=== PATIENT | female | born 1980 | race Caucasian/White ===

== ENCOUNTER 2017-12-25 07:42 | Day surgery (SDC) | payer OTHER, SELFPAY ==
[2017-12-25] VITALS (7 sets, daily range): BP systolic 97–103; BP diastolic 59–72; PULSE 75–88; RESP 16; TEMP 36.3–36.6; O2SAT 98–100; BMI 24.7
--- NOTE | 2017-12-25 | IMM_PTH ---
PATIENT: JOSE ESCALANTE [place] [facility] [place][id number] AGE/SX: 37/F ROOM: RE12/25/[address]: Dr. Darya James MD : 1980 BED: DIS: 12/25/2017 SPEC #: [id number] RECD: 12/26/17 13:57 STATUS: TRACY RECindy #: [id number] MANDY: 12/25/17 00:[address]: Darya James DEPT: IMMUNOHISTOCHEMISTRY RECD BY: Meredith Mireles ENTERED: 12/26/17 13:58 SP TYPE: IMMUNO OTHR DR: Sebastian Julian Tissues: A - Uterine cervix, NOS Procedures: p16 (initial) KI-67 (add) PHYSICIAN & INSTITUTION [place] [id number] SPECIMEN INFORMATION: Tissue Source: A - Ectocervix Clinical Info: SHERRIE III Specimen Number: [id number] CPT code: 76107, 77591 METHODOLOGY: Deparaffinized sections of prefer/formalin-fixed tissue or PAP/DQ stained slides are incubated with monoclonal/polyclonal antibodies/oligonucleotide probes. Localization is made via biotin free immunoperoxidase method. Appropriate controls are performed and reacted as expected. Results on target cell population are indicated in the following table: RESULTS: ANTIBODY / CLONE RESULT Block A2 P16 (E6H4) positive, block-like Ki-67 (30-9) positive, moderate to high These tests were developed and their performance characteristics determined by [facility]. They may not have been cleared or approved by the U.[place]. Food and Drug Administration. The FDA has determined that such clearance or approval is not necessary. INTERPRETATION: A. Ectocervix: Severe squamous dysplasia, SHERRIE III (HGSIL). AM:loy 12/29/17
[2017-12-25 08:13] LABS: Internal QC Validated? YES +Cl - CLEAR BKGD; Pregnancy, Urine Negative Negative
[2017-12-25 08:40] LABS: Hematocrit 37.4 % (37-47); Hemoglobin 12.7 g/dl (12.0-15.0); Mean Corpuscular Hgb 30.6 pg (27.0-32.0); Mean Corpuscular Volume 90.1 fL (81-99); Mean Platelet Vol. 10.4 fl (6.2-12.0); Platelet Count 206 K/mm3 (150-450); RBC Distribution Width CV 13.5 % (11.6-14.6); RBC Distribution Width SD 44.4 fl (35.1-43.9); Red Blood Count 4.15 M/mm3 (4.2-5.4); Scan Indicated on CBC? Y/N NO; White Blood Count 4.4 K/mm3 (4.4-11.0)
[2017-12-25] MEDS: FERRIC SUBSULFATE 8 GM SOLN (09:17)
--- NOTE | 2017-12-25 09:35 | CER_PTH ---
PATIENT: JOSE ESCALANTE LOC: [place] U#:[id number] AGE/SX: 37/F ROOM: RE12/25/[address]: Dr. Darya James MD : 1980 BED: DIS: 12/25/2017 SPEC #: [id number] RECD: 12/25/17 11:09 STATUS: TRACY RIA #: [id number] MANDY: 12/25/17 09:[address]: Darya James DEPT: SURGICAL PATHOLOGY RECD BY: Ramu Reyes ENTERED: 12/25/17 12:10 SP TYPE: CERV OTHR DR: Sebastian Julian Tissues: A - Uterine cervix, NOS B - Endocervical Procedures: Surgery Specimen Level IV HEADER OPERATION: LEEP cone PRE-OP DIAGNOSIS: SHERRIE III of cervix TISSUE SUBMITTED: A ? Ectocervix, B ? Endocervical curettage MICROSCOPIC DIAGNOSIS A. Ectocervix, LEEP conization: Moderate to severe squamous dysplasia, SHERRIE II-III with endocervical gland involvement, completely excised. B. Endocervix, curettings: Strips of benign superficial endocervix and mucous. No evidence of dysplasia. AM:loy 12/26/17 COMMENT Case was discussed with Dr. James by Dr. Dawson on 01/01/18 at 5:00 p.m. regarding margins on specimen A and confirmed that margins were negative for dysplasia. A. Immunohistochemistry ([id number]) for surrogate HPV marker (p16) will be reported separately. Case has been reviewed in consultation with Dr. Hickman who concurs with the above diagnosis. IDC:SJ MICROSCOPIC DESCRIPTION Slides are reviewed. GROSS DESCRIPTION A - Received in fixative is one container labeled with the patient's name and designated ectocervix, stitch at top. The specimen consists of a piece of link, indurated tissue measuring 3.5 x 1.7 cm and up to 1 cm in thickness. The cervical opening is covered with mucoid material. No mucosal lesion is identified. A stitch is noted, presumed to be 12 o?clock position. The nonmucosal surface is inked black and the endocervical margin is inked blue. The specimen is serially sectioned and submitted entirely in four cassettes as follows: 1 ? 12 to 3 o?clock, 2 ? 3 to 6 o?clock, 3 ? 6 to 9 o?clock, 4 ? 9 to 12 o?clock. The mucoid material covering the cervical opening is submitted in cassette 1. B - Received in fixative is one container labeled with the patient's name and designated endocervical curettage. The specimen consists of multiple fragments of hemorrhagic mucoid tissue that in aggregate measure 1.5 x 1 x 0.1 cm. The specimen is totally submitted in one cassette. / SJ:rg 12/25/17 TC:0 CPT: 55147 x2
--- NOTE | 2017-12-25 09:39 | PCM.DC.LEE ---
Discharge Diet: No Restrictions Discharge Activity: Return to Normal Activity, May not drive while taking narcotic pain medications., May Take a Tub Bath - in 2 weeks Return to work on:: 12/29/17 May shower in (days): 1 May resume sexual activity in: 4 weeks - nothing in the vagina for 4 weeks. Call your doctor if your incision/area has: Sudden Increased Bleeding - for more than 2 hrs tiffanie row, Foul Smelling Discharge Call your doctor if you observe: Fever of 101 or Higher, Using more than one pad per hour Allergies/Adverse Reactions: Allergies spironolactone Adverse Reaction (Verified 12/18/17 09:13) Other Medications to take at Discharge Citalopram Hydrobromide [Citalopram HBr] 20 mg PO DAILY 02/06/15 Multivit with Calcium,Iron,Min [Multiple Vitamins For Women] 1 each PO DAILY 12/18/17 Norethindrone [Deblitane] 0.35 mg PO DAILY 12/18/17 Hydrocodone/Acetaminophen [[place] 5-325 Tablet] 1 - 2 each PO Q8 PRN 4 Days #10 tablet 12/25/17 Ibuprofen [Motrin] 600 mg PO Q6H PRN #20 tab 12/25/17 The following prescriptions were given: Hydrocodone/Acetaminophen [[place] 5-325 Tablet] 1 - 2 each PO Q8 PRN 4 Days #10 tablet PRN Reason: Pain Ibuprofen [Motrin] 600 mg PO Q6H PRN #20 tab PRN Reason: Pain Primary Care Physician: Sebastian Julian [Primary Care Provider] - Please Follow Up With: Darya James MD - [phone] When: as scheduled or needed or in approx. 4 weeks
--- NOTE | 2017-12-25 10:00 | PCM.OPRPT ---
Report of Operation Date of Procedure: 12/25/17 Pre-Operative Diagnosis: high grade cervical dysplasia Post-Operative Diagnosis: same Surgery/Procedure Performed:: LEEP of the cervix Description of Surgical Findings:: grossly normal cervix and vagina form setter helper: None Type of Anesthesia:: MAC/Supplemental/Local Anesthesiologist: Jg Luo Special Medications: none Specimen's removed: Ectocervix LEEP specimen and ECC Drains: none Estimated Blood Loss (mL): 5 Fluids Replaced: 800 cc LR Description of Procedure: The patient was taken to the operating room where she was prepped and draped in a dorsal lithotomy position. The LEEP speculum was placed in the vagina. A paracervical block was performed with 20cc of 1% Xylocaine with 1-100,000 epinephrine solution. The ectocervix was amputated with the 8 mm loop. An endocervical curettage was then performed. The specimens were handed off and labeled and sent to pathology. Hemostasis of the cervix was obtained with ball cautery. Some Monsel solution was placed over the cauterized cervix. Hemostasis was assured. The instruments were removed from the vagina. A vaginal sweep was completed by me. Sponge and needle counts were correct. Specimens: Ectocervix and endocervical curettings Findings: Normal vagina, grossly normal cervix Grafts/Implants Used: none - Complications none - Admit VTE Documentation VTE Present on Admission: No VTE Mechan Device Prophylaxis: None VTE Pharm Prophylaxis ordered?: No Reason prophylaxis not ordered:: Procedure Not Indicated
--- NOTE | 2017-12-25 10:03 | OP.PCM_ITS ---
Report of Operation Date of Procedure: 12/25/17 Pre-Operative Diagnosis: high grade cervical dysplasia Post-Operative Diagnosis: same Surgery/Procedure Performed:: LEEP of the cervix Description of Surgical Findings:: grossly normal cervix and vagina hris analyst: None Type of Anesthesia:: MAC/Supplemental/Local Anesthesiologist: Jg Luo Special Medications: none Specimen's removed: Ectocervix LEEP specimen and ECC Drains: none Estimated Blood Loss (mL): 5 Fluids Replaced: 800 cc LR Description of Procedure: The patient was taken to the operating room where she was prepped and draped in a dorsal lithotomy position. The LEEP speculum was placed in the vagina. A paracervical block was performed with 20cc of 1% Xylocaine with 1-100,000 epinephrine solution. The ectocervix was amputated with the 8 mm loop. An endocervical curettage was then performed. The specimens were handed off and labeled and sent to pathology. Hemostasis of the cervix was obtained with ball cautery. Some Monsel solution was placed over the cauterized cervix. Hemostasis was assured. The instruments were removed from the vagina. A vaginal sweep was completed by me. Sponge and needle counts were correct. Specimens: Ectocervix and endocervical curettings Findings: Normal vagina, grossly normal cervix Grafts/Implants Used: none - Complications none - Admit VTE Documentation VTE Present on Admission: No VTE Mechan Device Prophylaxis: None VTE Pharm Prophylaxis ordered?: No Reason prophylaxis not ordered:: Procedure Not Indicated
== END 2017-12-25 11:44 | disposition home or self-care (01) ==
LOC: SDC 07:43 → AC 07:46
PROVIDERS: Anesthesiology; Visit Provider Obstetrics & Gynecology
PROC: 0UBC7ZZ Excision of Cervix, Via Natural or Artificial Opening (ICD-10-PCS; CPT 57522; principal; 2017-12-25 09:20)
DX: D06.0 Carcinoma in situ of endocervix (principal); F41.0 Panic disorder [episodic paroxysmal anxiety]; F41.9 Anxiety disorder, unspecified; F32.9 Major depressive disorder, single episode, unspecified; Z79.899 Other long term (current) drug therapy
CPT/HCPCS: 57522; 81025; 85027; 88305; 88341; 88342; J7120; J2405

== ENCOUNTER 2021-01-26 16:53 | Outpatient (RCR) | payer BC, SELFPAY ==
[2017-12-25 08:01] VITALS: BMI 24.7
[2021-01-26] MEDS: COVID-19 VACC, MRNA(PFIZER)/PF 30 MCG/0.3 ML SYRINGE IM (09:53)
[2021-02-16] MEDS: COVID-19 VACC, MRNA(PFIZER)/PF 30 MCG/0.3 ML SYRINGE IM (10:11)
== END 2021-01-26 23:59 ==
LOC: IMMUN 16:53
PROVIDERS: Visit Provider Family Medicine
DX: Z23 Encounter for immunization (principal)
CPT/HCPCS: 0001A; 0002A; 91300